=== PATIENT | female | born 1980 | race American Indian/Alaskan Native ===

== ENCOUNTER 2020-10-29 12:27 | Emergency (ER) | payer MEDICAID ==
--- NOTE | 2020-10-29 14:12 | Emergency Department Report ---
ED Lower Extremity HPI - General Chief Complaint: Extremity Injury, Lower Stated Complaint: FOOT INJURY Time Seen by Provider: 10/29/20 14:04 Source: patient Mode of arrival: Ambulatory Limitations: No Limitations - History of Present Illness Initial Comments: 40-year-old female presents to the ER today with complaints of left ankle/foot pain after an accidental fall about 2 weeks ago. Patient states that she was at a gas station and tripped over uneven pavement while walking. Patient states that when she fell she somehow injured her left ankle and left foot. She states that she thought she would get better and therefore did not get it checked out at the time of the injury but she states that she has been having increasing pain and swelling to her left ankle and foot since the injury. Complaint: ankle injury, foot injury -: Sudden, week(s) (2) - Related Data Previous Rx's Medication Instructions Recorded Last Taken Type Acetaminophen/Codeine [Tylenol 1 tab PO Q4HR PRN #12 tablet 10/29/20 Unknown Rx /Codeine # 3 tab] Ibuprofen [Motrin] 800 mg PO Q8HR PRN #30 tablet 10/29/20 Unknown Rx Allergies Allergy/AdvReac Type Severity Reaction Status Date / Time carbamazepine [From Tegretol] Allergy Unknown Verified 10/29/20 14:09 Penicillins Allergy Unknown Verified 10/29/20 14:09 ED Review of Systems ROS: Stated complaint: FOOT INJURY Other details as noted in HPI Comment: All other systems reviewed and negative Constitutional: denies: chills, fever Eyes: denies: eye pain, eye discharge, vision change ENT: denies: ear pain, throat pain, dental pain, hearing loss, epistaxis, congestion Respiratory: denies: cough, shortness of breath, SOB with exertion, SOB at rest, wheezing Cardiovascular: denies: chest pain, palpitations, dyspnea on exertion, edema, syncope, paroxysmal nocturnal dyspnea Gastrointestinal: denies: abdominal pain, nausea, diarrhea, constipation, hematemesis, hematochezia Genitourinary: denies: urgency, dysuria, discharge Musculoskeletal: joint swelling, arthralgia Skin: denies: rash, lesions Neurological: abnormal gait. denies: headache, weakness, numbness, paresthesias, confusion, vertigo Psychiatric: denies: anxiety, depression, auditory hallucinations, visual hallucinations, homicidal thoughts, suicidal thoughts Hematological/Lymphatic: denies: easy bleeding, easy bruising ED Past Medical Hx - Medications Home Medications: Home Medications Medication Instructions Recorded Confirmed Last Taken Type Acetaminophen/Codeine [Tylenol 1 tab PO Q4HR PRN #12 tablet 10/29/20 Unknown Rx /Codeine # 3 tab] Ibuprofen [Motrin] 800 mg PO Q8HR PRN #30 tablet 10/29/20 Unknown Rx ED Physical Exam - General Limitations: No Limitations General appearance: alert, in distress (Patient appears uncomfortable due to pain in ankle), obese - Head Head exam: Present: atraumatic, normocephalic, normal inspection - Eye Eye exam: Present: normal appearance, PERRL, EOMI Pupils: Present: normal accommodation - Neck Neck exam: Present: normal inspection, full ROM - Respiratory Respiratory exam: Present: normal lung sounds bilaterally. Absent: respiratory distress - Cardiovascular Cardiovascular Exam: Present: regular rate - Expanded Lower Extremity Exam Left Ankle exam: Present: tenderness (Moderate tenderness to palpation to the anterior and lateral aspect of the left ankle), swelling (Mild swelling noted mainly to the lateral aspect of the left ankle). Absent: full ROM (Range of motion mildly reduced due to pain), abrasion, laceration, ecchymosis, deformity, crepidus, dislocation, erythema Foot/Toe exam: Present: tenderness (Medial aspect of the right foot), tenderness at base of 5th metatarsal. Absent: swelling, abrasion, laceration, ecchymosis, deformity, crepidus, dislocation, amputation, puncture wound, foreign body, calcaneal tenderness, nail avulsion, subungual hematoma Neuro vascular tendon exam: Absent: no vascular compromise, abnormal cap refill, motor deficit, sensory deficit, tendon deficit Gait: Positive: observed and limited by pain - Neurological Exam Neurological exam: Present: alert, oriented X3, CN II-XII intact - Psychiatric Psychiatric exam: Present: normal affect, normal mood - Skin Skin exam: Present: intact ED Course Vital Signs 10/29/20 14:03 Temperature 99.1 F Pulse Rate 69 Respiratory 20 Rate Blood Pressure 107/87 O2 Sat by Pulse 100 Oximetry ED Lower Extremity MDM - Radiology Data Radiology results: report reviewed Patient: NAVA SOLO MR#: [id number] : 1980 Acct:[id number] Age/Sex: 40 / F ADM Date: 10/29/20 Loc: ED Attending Dr: Ordering Physician: ARLYN COLLIER Date of Service: 10/29/20 Procedure(s): XR ankle 3+V LT Accession Number(s): [id number] cc: ARLYN COLLIER Fluoro Time In Minutes: LEFT ANKLE 4 VIEW(S) INDICATION / CLINICAL INFORMATION: fall/ankle pain COMPARISON: None available. FINDINGS: BONES / JOINT(S): No acute fracture or subluxation. There is inferior calcaneal enthesopathy at the plantar fascia insertion. SOFT TISSUES: No significant abnormality. ADDITIONAL FINDINGS: None. LEFT FOOT 3 VIEW(S) INDICATION / CLINICAL INFORMATION: fall/ankle pain COMPARISON: None available. FINDINGS: BONES / JOINT(S): No acute fracture or subluxation. There is inferior calcaneal enthesopathy. There is a small os perineum. SOFT TISSUES: No significant abnormality. ADDITIONAL FINDINGS: None. Signer Name: Kevin Berry MD Signed: 10/29/2020 2:56 PM Workstation Name: [id number] Transcribed By: SS Dictated By: KEVIN BERRY Electronically Authenticated By: KEVIN BERRY Signed Date/Time: 10/29/201455 DD/ 53 TD/TT: Critical care attestation.: If time is entered above; I have spent that time in minutes in the direct care of this critically ill patient, excluding procedure time. ED Disposition Clinical Impression: Ankle sprain, Foot sprain Disposition: DC-01 TO HOME OR SELFCARE Is pt being admited?: No Does the pt Need Aspirin: No Condition: Stable Instructions: Ankle Sprain, Foot Sprain Additional Instructions: Rest, ice and elevate foot/ankle for the next 3-4 days. Use crutches/air splint as directed. I recommend that you follow up with application technician next week for further evaluation especially if your symptoms persist. Return to ED if symptoms changes or worsens in anyway. Prescriptions: Ibuprofen [Motrin] 800 mg PO Q8HR PRN #30 tablet PRN Reason: PAIN Acetaminophen/Codeine [Tylenol /Codeine # 3 tab] 1 tab PO Q4HR PRN #12 tablet PRN Reason: Pain Referrals: JACOB ALMENDAREZ MD [Staff Physician] - 3-5 Days Forms: Work/School Release Form(ED) Time of Disposition: 15:22
--- NOTE | 2020-10-29 15:00 | XRay Report ---
LEFT ANKLE 4 VIEW(S) INDICATION / CLINICAL INFORMATION: fall/ankle pain COMPARISON: None available. FINDINGS: BONES / JOINT(S): No acute fracture or subluxation. There is inferior calcaneal enthesopathy at the p lantar fascia insertion. SOFT TISSUES: No significant abnormality. ADDITIONAL FINDINGS: None. LEFT FOOT 3 VIEW(S) INDICATION / CLINICAL INFORMATION: fall/ankle pain COMPARISON: None available. FINDINGS: BONES / JOINT(S): No acute fracture or subluxation. There is inferior calcaneal enthesopathy. There i s a small os perineum. SOFT TISSUES: No significant abnormality. ADDITIONAL FINDINGS: None. Signer Name: Hayden Berry MD Signed: 10/29/2020 2:56 PM Workstation Name: [id number]
[2020-10-29 15:19] VITALS: BP 107/87
== END 2020-10-29 16:21 | disposition home or self-care (01) ==
LOC: ED 12:27
DX: S93.402A Sprain of unspecified ligament of left ankle, initial encounter (principal); S93.602A Unspecified sprain of left foot, initial encounter; Z79.1 Long term (current) use of non-steroidal anti-inflammatories (NSAID); Z79.899 Other long term (current) drug therapy; Z88.0 Allergy status to penicillin; Z88.8 Allergy status to other drugs, medicaments and biological substances; W01.0XXA Fall on same level from slipping, tripping and stumbling without subsequent striking against object, initial encounter; Y93.89 Activity, other specified; Y92.89 Other specified places as the place of occurrence of the external cause; Y99.8 Other external cause status

== ENCOUNTER 2021-06-28 23:09 | Emergency (ER) | payer OTHER, MEDICAID ==
[2021-06-28 23:15] VITALS: BP 148/88
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
[2021-06-29] MEDS ORDERED: traMADol 50 MG TAB PO ONE (02:28)
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
== END 2021-06-29 03:26 | disposition home or self-care (01) ==
LOC: ED 23:09
DX: S46.912A Strain of unspecified muscle, fascia and tendon at shoulder and upper arm level, left arm, initial encounter (principal); V89.2XXA Person injured in unspecified motor-vehicle accident, traffic, initial encounter; Y93.89 Activity, other specified; Y92.89 Other specified places as the place of occurrence of the external cause; Y99.8 Other external cause status
CPT/HCPCS: 72100; 99283